=== PATIENT | female | born 1965 | race Caucasian/White ===

== ENCOUNTER → 2016-08-09 | Outpatient (CLI) | payer OTHER ==
--- NOTE | 2016-08-11 08:15 | MM ---
Reason for exam: screening (asymptomatic). Last mammogram was performed 1 year and 2 months ago. Physical Findings: A clinical breast exam by your physician is recommended on an annual basis and results should be correlated with mammographic findings. MG Screening Mammo w CAD Bilateral CC and MLO view(s) were taken. Prior study comparison: June 19, 2015, bilateral MG screening mammo w CAD. January 01, 2014, bilateral MG screening mammo w CAD. There are scattered fibroglandular densities. Finding: There is a 4 mm equal density (isodense) mass in the left breast on MLO, 6-7cm from the nipple. New finding since June 19, 2015 and January 01, 2014. ASSESSMENT: Incomplete: need additional imaging evaluation, BI-RAD 0 RECOMMENDATION: Special view mammogram of the left breast. If lesion persists on supplemental views, image directed ultrasound is recommended. [facility] will attempt to contact patient to return for supplemental views and ultrasound if indicated.
== END | disposition home or self-care (01) ==
LOC: RADMAMWWP 15:16
PROVIDERS: ATTEND Internal Medicine
DX: Z12.31 Encounter for screening mammogram for malignant neoplasm of breast (principal); R92.2 Inconclusive mammogram

== ENCOUNTER → 2016-08-12 | Outpatient (CLI) | payer OTHER ==
--- NOTE | 2016-08-12 13:57 | MM ---
Reason for exam: additional evaluation requested from abnormal screening. Last mammogram was performed less than 1 month ago. Physical Findings: Nurse did not find any significant physical abnormalities on exam. MG Work Up Mamm w CAD LT CC and MLO view(s) were taken of the left breast. Prior study comparison: August 09, 2016, bilateral MG screening mammo w CAD. June 19, 2015, bilateral MG screening mammo w CAD. There are scattered fibroglandular densities. No suspicious nodule. These results were verbally communicated with the patient and result sheet given to the patient on 08/12/16. ASSESSMENT: Probably benign, BI-RAD 3 RECOMMENDATION: Follow-up diagnostic mammogram of the left breast in 6 months.
== END | disposition home or self-care (01) ==
LOC: RADMAMWWP 12:57
PROVIDERS: ATTEND Internal Medicine
DX: R92.8 Other abnormal and inconclusive findings on diagnostic imaging of breast (principal)

== ENCOUNTER 2016-08-16 10:13 | Day surgery (SDC) | payer OTHER ==
[2016-08-12 11:35] VITALS: BMI 26.5
[~2016-08-16 10:13] MED LIST: DEXAMETHASONE SOD PHOSPHATE 10 MG/ML 1 ML VIAL IV ONE; HEPARIN SODIUM,PORCINE 5,000 UNIT/ML 1 ML VIAL SQ ONE; LACTATED RINGERS 1,000 ML IV ONE; LIDOCAINE 1% 20 ML VIAL (10MG/ML) FOR IV START INTRADERMA PRN; Pre Op ABX Message 1 EACH MISC MISCELLANE ONE
[2016-08-16 11:10] VITALS: RESP 16
[2016-08-16] MEDS ORDERED: LIDOCAINE 1% 20 ML VIAL (10MG/ML) FOR IV START INTRADERMA ONE (11:13)
--- NOTE | 2016-08-16 11:39 | P.GSHP ---
History of Present Illness H&P Date: 08/16/16 Chief Complaint: Right back lipoma This a 51-year-old female who presents today for excision of right back lipoma. Patient has a 5 cm lipoma located over her right upper back. Past Medical History Past Medical History: Asthma, GERD/Reflux, Osteoarthritis (OA) Additional Past Medical History / Comment(s): degenerative disk disease, scoliosis, sciatica fibromyalgia. Restless leg, migraine headaches, ADD, Lipoma R shoulder. History of Any Multi-Drug Resistant Organisms: MRSA Date of last positivie culture/infection: 03/2010 MDRO Source:: left shoulder/tattoo site Past Surgical History: Section, Orthopedic Surgery, Tubal Ligation Additional Past Surgical History / Comment(s): Both knees arthroscopy, rt hip arthroscopy, Lt hand extensor x2, nasal surgery, Past Anesthesia/Blood Transfusion Reactions: Family History of Problems w/ Anesthesia, Postoperative Nausea & Vomiting (PONV) Additional Past Anesthesia/Blood Transfusion Reaction / Comment(s): mom didn't wake from anesthesia well Past Psychological History: ADD/ADHD, Anxiety, Bipolar Smoking Status: Current every day smoker Past Alcohol Use History: None Reported Additional Past Alcohol Use History / Comment(s): Smokes aprrox. 1 PPD since young woman. States is trying to quit. Past Drug Use History: None Reported - Past Family History Brother(s) Family Medical History: Cancer, CVA/TIA, Myocardial Infarction ([place]) Additional Family Medical History / Comment(s): Another brother had throat cancer, another brother had colon cancer Father Family Medical History: Cancer Additional Family Medical History / Comment(s): stomach cancer Medications and Allergies Home Medications Medication Instructions Recorded Confirmed Type Ibuprofen [Motrin] 800 mg PO Q8HR PRN 10/01/14 08/16/16 History rOPINIRole HCL [Requip] 1 mg PO HS 10/01/14 08/16/16 History Albuterol Inhaler [Ventolin 1 puff INHALATION RT-Q4H PRN 01/07/15 08/16/16 History Inhaler] Budesonide-Formot 160-4.5 Mcg 2 puff INHALATION RT-BID 01/07/15 08/16/16 History [Symbicort 160-4.5 Mcg Inhaler] Loratadine [Claritin] 10 mg PO DAILY 01/07/15 08/16/16 History Montelukast [Singulair] 10 mg PO DAILY 01/07/15 08/16/16 History Ranitidine HCl 150 mg PO BID 01/07/15 08/16/16 History diphenhydrAMINE [Benadryl] 25 mg PO Q8H PRN 02/27/15 08/16/16 History ALPRAZolam [Xanax] 1 mg PO BID PRN 07/26/16 08/16/16 History Butalb/APAP/Caff 50-325-40Mg 1 tab PO Q12H PRN 07/26/16 08/16/16 History [Fioricet 50-325-40] Cyclobenzaprine [Flexeril] 10 mg PO Q8H 07/26/16 08/16/16 History Gabapentin [Neurontin] 100 mg PO TID PRN 07/26/16 08/16/16 History HYDROcodone/APAP 7.5-325MG [[place] 1 tab PO Q8H PRN 07/26/16 08/16/16 History 7.5-325] Allergies Allergy/AdvReac Type Severity Reaction Status Date / Time aspirin Allergy Dyspnea Verified 08/16/16 11:13 citalopram hydrobromide Allergy Rash/Hives Verified 08/16/16 11:13 [From Celexa] Penicillins Allergy Dyspnea Verified 08/16/16 11:13 propoxyphene napsylate Allergy Nausea & Verified 08/16/16 11:13 [From Darvocet-N] Vomiting Sulfa (Sulfonamide Allergy Dyspnea & Verified 08/16/16 11:13 Antibiotics) Severe Nausea & Vomiting Surgical - Exam Vital Signs Temp Pulse Resp BP Pulse Ox 97.1 F L 87 16 117/78 98 08/16/16 11:08 08/16/16 11:08 08/16/16 11:08 08/16/16 11:08 08/16/16 11:08 - General well developed, no distress - Eyes PERRL - ENT normal pinna - Neck no masses - Respiratory normal expansion - Cardiovascular Rhythm: regular - Abdomen Abdomen: soft - Integumentary 5 cm lipoma over right upper back. Assessment and Plan Plan: Right upper back lipoma. We'll perform excision.
[2016-08-16] MEDS ORDERED: BUPIVACAIN-EPI 0.25%-1:200,000 30 ML VIAL SQ ONE ×3 (11:48)
[2016-08-16] MEDS ORDERED: fentaNYL (PF) 50 MCG/ML 2 ML AMP ONE (11:55)
[2016-08-16] MEDS ORDERED: MIDAZOLAM 2 MG/2 ML VIAL ONE (11:55)
[2016-08-16] MEDS ORDERED: PROPOFOL 10 MG/ML 20 ML VIAL IV ONE (11:55)
[2016-08-16] MEDS ORDERED: SODIUM CHLORIDE 0.9% 50 ML with ceFAZolin 2,000 MG IV ONE ×2 (12:16)
--- NOTE | 2016-08-16 12:34 | P.OP ---
Date of Procedure: 08/16/16 Preoperative Diagnosis: Right back lipoma Postoperative Diagnosis: Right back lipoma Procedure(s) Performed: Excision of right back lipoma Anesthesia: MAC Surgeon: Matthieu Meyers Pathology: other (Right back lipoma) Condition: stable Disposition: PACU Description of Procedure: The patient's placed on the operative table in the lateral position. She received IV sedation. Patient's lipoma had been previously marked in the preoperative hold area. The skin was incised over the area lipoma. The lipoma was deep to the infraspinatus. The muscle fibers the infraspinatus were spread and the lipoma was visualized. The lipoma was then grasped with a pair of Allis clamps and then dissected with a left cautery. The lipoma measured prostate 10 x 10 cm. The Bovie was used for hemostasis. The skin was then closed with interrupted 3-0 Monocryl suture. Dermabond was applied. Patient was sent to recovery room stable condition.
[2016-08-16] MEDS: HYDROmorphone 1 MG/ML 1 ML SYRINGE IVP PRN ×2 (12:35→12:43)
[2016-08-16 12:40] VITALS: TEMP 97.4
[2016-08-16 13:30] VITALS: BP 113/75; PULSE 78
== END 2016-08-16 14:00 | disposition home or self-care (01) ==
LOC: OR 10:13
PROVIDERS: ATTEND Surgery
DX: K21.9 Gastro-esophageal reflux disease without esophagitis (principal); M19.90 Unspecified osteoarthritis, unspecified site; G25.81 Restless legs syndrome; M79.7 Fibromyalgia; F17.200 Nicotine dependence, unspecified, uncomplicated; J44.9 Chronic obstructive pulmonary disease, unspecified; J45.909 Unspecified asthma, uncomplicated; F41.9 Anxiety disorder, unspecified; Z79.51 Long term (current) use of inhaled steroids; Z79.899 Other long term (current) drug therapy; D17.1 Benign lipomatous neoplasm of skin and subcutaneous tissue of trunk; Z88.6 Allergy status to analgesic agent; Z88.5 Allergy status to narcotic agent; Z88.0 Allergy status to penicillin; Z88.2 Allergy status to sulfonamides
CPT/HCPCS: 81025; 88304; 21933; J2250; J1644; J1100; J3010; J1170; J0690; J2704; 99152; 99153

== ENCOUNTER → 2017-05-04 | Outpatient (CLI) | payer OTHER ==
--- NOTE | 2017-05-04 14:30 | MM ---
Reason for exam: follow-up at short interval from prior study. Last mammogram was performed 9 months ago. History: Family history of breast cancer in sister. MG Diagnostic Mammo LT w CAD CC, MLO, ML, and XCCL view(s) were taken of the left breast. Prior study comparison: August 12, 2016, left breast MG work up mamm w CAD LT. August 09, 2016, bilateral MG screening mammo w CAD. The breast tissue is heterogeneously dense. This may lower the sensitivity of mammography. The previously seen asymmetry is mammographically unchanged. These results were verbally communicated with the patient and result sheet given to the patient on 05/04/17. ASSESSMENT: Probably benign, BI-RAD 3 RECOMMENDATION: Follow-up diagnostic mammogram of both breasts in 3 months. Back on schedule for August 2017.
== END | disposition home or self-care (01) ==
LOC: RADMAMWWP 13:43
PROVIDERS: ATTEND Internal Medicine
DX: R92.8 Other abnormal and inconclusive findings on diagnostic imaging of breast (principal)

== ENCOUNTER → 2017-08-23 | Outpatient (CLI) | payer OTHER ==
--- NOTE | 2017-08-23 15:09 | US ---
EXAMINATION TYPE: US kidneys/renal and bladder DATE OF EXAM: 08/23/2017 COMPARISON: NONE CLINICAL HISTORY: R10.9 FLANK PAIN. hematuria EXAM MEASUREMENTS: Right Kidney: 10.2 x 4.0 x 5.9 cm Left Kidney: 10.7 x 5.2 x 5.8 cm exam somewhat limited due to bowel gas Right Kidney: No hydronephrosis or masses seen Left Kidney: No hydronephrosis or masses seen Bladder: wnl Bilateral Jets seen: Yes There is no evidence for hydronephrosis at this point in time. No nephrolithiasis is seen. No kandy s are identified. The urinary bladder is anechoic. Bilateral ureteral jets are seen. IMPRESSION: No significant abnormality seen
== END | disposition home or self-care (01) ==
LOC: RADUSWWP 14:20
PROVIDERS: ATTEND Internal Medicine
DX: R10.9 Unspecified abdominal pain (principal)
CPT/HCPCS: 76770

== ENCOUNTER → 2017-08-24 | Outpatient (CLI) | payer OTHER ==
--- NOTE | 2017-08-24 14:14 | MM ---
Reason for exam: additional evaluation requested from prior study. Last mammogram was performed 4 months ago. History: Family history of breast cancer in sister at age 45. Physical Findings: Nurse did not find any significant physical abnormalities on exam. MG Diagnostic Mammo w CAD SIENA Bilateral CC and MLO view(s) were taken. Prior study comparison: May 04, 2017, left breast MG diagnostic mammo LT w CAD. August 12, 2016, left breast MG work up mamm w CAD LT. There are scattered fibroglandular densities. There is chronic nodularity in the left breast. No significant new findings when compared with previous films. These results were verbally communicated with the patient and result sheet given to the patient on 08/24/17. ASSESSMENT: Benign, BI-RAD 2 RECOMMENDATION: Routine screening mammogram of both breasts in 1 year.
== END | disposition home or self-care (01) ==
LOC: RADMAMWWP 13:03
PROVIDERS: ATTEND Internal Medicine
DX: R92.8 Other abnormal and inconclusive findings on diagnostic imaging of breast (principal)
CPT/HCPCS: 77066

== ENCOUNTER 2018-10-24 11:33 | Emergency (ER) | payer OTHER ==
[2018-10-24 11:43] VITALS: RESP 18; TEMP 98.3
[2018-10-24 12:44] LABS: Basophils % (A) 0 %; Eosinophils # (A) 0.3 k/uL (0-0.7); Eosinophils % (A) 4 %; HCT 38.7 % (34.0-46.0); HGB 12.8 gm/dL (11.4-16.0); Lymphocytes # (A) 1.6 k/uL (1.0-4.8); Lymphocytes % (A) 22 %; MCH 29.8 pg (25.0-35.0); MCV 90.6 fL (80.0-100.0); Monocytes # (A) 0.3 k/uL (0-1.0); Monocytes % (A) 4 %; Neutrophils # (A) 5.1 k/uL (1.3-7.7); Neutrophils % (A) 69 %; Platelet Count 362 k/uL (150-450); RBC 4.28 m/uL (3.80-5.40); RDW 14.9 % (11.5-15.5); WBC 7.4 k/uL (3.8-10.6)
[2018-10-24 12:52] LABS: ALT 26 U/L (9-52); AST 16 U/L (14-36); Albumin 4.2 g/dL (3.5-5.0); Alkaline Phosphatase 70 U/L (38-126); Anion Gap 8 mmol/L; Blood Urea Nitrogen 13 mg/dL (7-17); Calcium 9.6 mg/dL (8.4-10.2); Carbon Dioxide 21 mmol/L (22-30); Chloride 111 mmol/L (98-107); Glucose 107 mg/dL (74-99); Potassium 4.2 mmol/L (3.5-5.1); Sodium 140 mmol/L (137-145); Total Bilirubin 0.3 mg/dL (0.2-1.3); Total Protein 6.9 g/dL (6.3-8.2)
[2018-10-24 12:55] LABS: INR 0.9 (<1.2); Partial Thromboplastin Time 22.7 sec (22.0-30.0); Prothrombin Time 9.9 sec (9.0-12.0)
[2018-10-24 12:59] LABS: Appearance,Urine Clear (Clear); Bilirubin,Urine Negative (Negative); Blood,Urine Moderate (Negative); Color,Urine Yellow; Glucose,Urine (UA) Negative (Negative); Ketones,Urine Negative (Negative); Leukocyte Esterase,Urine Negative (Negative); Mucus,Urine Rare /hpf; Nitrite,Urine Negative (Negative); PH, Urine 7.5 (5.0-8.0); Protein,Urine Negative (Negative); RBC,Urine 97 /hpf (0-5); Specific Gravity,Urine 1.018 (1.001-1.035); Squamous Epithelial Cell,Urine 1 /hpf (0-4); Urobilinogen,Urine <2.0 mg/dL (<2.0); WBC,Urine <1 /hpf (0-5)
--- NOTE | 2018-10-24 13:14 | ED ---
General Adult HPI - General Chief complaint: Vaginal Bleeding Stated complaint: Female , bleeding Time Seen by Provider: 10/24/18 11:53 Source: patient, RN notes reviewed, old records reviewed Mode of arrival: ambulatory Limitations: no limitations - History of Present Illness Initial comments: This is a 53-year-old female who presents today with 3 weeks of vaginal bleeding. She reports that heavy passing significant amount of clots. Patient states that she's had no other significant symptoms like lightheaded or dizziness. Patient states that she is supposed to follow up with [facility] but has not been able to at this time. She reports she's just increasingly concerned about she come to the ER today. Patient denies any other symptoms. Patient reports that she's not had a menstrual cycle in the past year. - Related Data Home Medications Medication Instructions Recorded Confirmed Ibuprofen [Motrin] 800 mg PO Q8HR PRN 10/01/14 10/24/18 rOPINIRole HCL [Requip] 1 mg PO HS 10/01/14 10/24/18 Albuterol Inhaler [Ventolin 1 puff INHALATION RT-Q4H PRN 01/07/15 10/24/18 Inhaler] Budesonide-Formot 160-4.5 Mcg 2 puff INHALATION RT-BID 01/07/15 10/24/18 [Symbicort 160-4.5 Mcg Inhaler] Loratadine [Claritin] 10 mg PO DAILY 01/07/15 10/24/18 Montelukast [Singulair] 10 mg PO DAILY 01/07/15 10/24/18 Ranitidine HCl 150 mg PO BID 01/07/15 10/24/18 diphenhydrAMINE [Benadryl] 25 mg PO Q8H PRN 02/27/15 10/24/18 ALPRAZolam [Xanax] 1 mg PO BID PRN 07/26/16 10/24/18 Butalb/APAP/Caff 50-325-40Mg 1 tab PO Q12H PRN 07/26/16 10/24/18 [Fioricet 50-325-40] Cyclobenzaprine [Flexeril] 10 mg PO BID PRN 07/26/16 10/24/18 Ergocalciferol (Vitamin D2) 50,000 unit PO QMONTH 10/24/18 10/24/18 [Vitamin D2] HYDROcodone/APAP 10-325MG [[place] 1 tab PO TID PRN 10/24/18 10/24/18 10-325] Levofloxacin [Levaquin] 500 mg PO BID 10/24/18 10/24/18 Levothyroxine Sodium [Synthroid] 25 mcg PO DAILY 10/24/18 10/24/18 Rosuvastatin Calcium [Crestor] 5 mg PO DAILY 10/24/18 10/24/18 lamoTRIgine [LaMICtal Xr] 50 mg PO TID 10/24/18 10/24/18 Allergies Allergy/AdvReac Type Severity Reaction Status Date / Time aspirin Allergy Dyspnea Verified 10/24/18 12:07 citalopram hydrobromide Allergy Rash/Hives Verified 10/24/18 12:07 [From Celexa] Penicillins Allergy Dyspnea Verified 10/24/18 12:07 propoxyphene napsylate Allergy Nausea & Verified 10/24/18 12:07 [From Darvocet-N] Vomiting Sulfa (Sulfonamide Allergy Dyspnea & Verified 10/24/18 12:07 Antibiotics) Severe Nausea & Vomiting Review of Systems ROS Statement: Those systems with pertinent positive or pertinent negative responses have been documented in the HPI. ROS Other: All systems not noted in ROS Statement are negative. Past Medical History Past Medical History: Fibromyalgia Additional Past Medical History / Comment(s): degenerative disk disease, scoliosis, sciatica,. Restless leg, migraine headaches History of Any Multi-Drug Resistant Organisms: MRSA Date of last positivie culture/infection: 03/2010 MDRO Source:: left shoulder/tattoo site Past Surgical History: Section, Orthopedic Surgery, Tubal Ligation Additional Past Surgical History / Comment(s): Both knees arthroscopy, rt hip arthroscopy, Lt hand extensor x2, nasal surgery Past Anesthesia/Blood Transfusion Reactions: Family History of Problems w/ Anesthesia, Postoperative Nausea & Vomiting (PONV) Additional Past Anesthesia/Blood Transfusion Reaction / Comment(s): mom didn't wake from anesthesia well Past Psychological History: ADD/ADHD, Anxiety, Bipolar Smoking Status: Current every day smoker Past Alcohol Use History: None Reported Past Drug Use History: None Reported - Past Family History Brother(s) Family Medical History: Cancer, CVA/TIA, Myocardial Infarction ([place]) Additional Family Medical History / Comment(s): Another brother had throat cancer, another brother had colon cancer Father Family Medical History: Cancer Additional Family Medical History / Comment(s): stomach cancer General Exam - General Exam Comments Initial Comments: 53-year-old female. Alert and oriented. No distress. Limitations: no limitations General appearance: alert, in no apparent distress Head exam: Present: atraumatic, normocephalic, normal inspection Eye exam: Present: normal appearance, PERRL, EOMI. Absent: scleral icterus, conjunctival injection, periorbital swelling ENT exam: Present: normal exam, mucous membranes moist Neck exam: Present: normal inspection. Absent: tenderness, meningismus, lymphadenopathy Respiratory exam: Present: normal lung sounds bilaterally. Absent: respiratory distress, wheezes, rales, rhonchi, stridor Cardiovascular Exam: Present: regular rate, normal rhythm, normal heart sounds. Absent: systolic murmur, diastolic murmur, rubs, gallop, clicks GI/Abdominal exam: Present: soft, normal bowel sounds. Absent: distended, tenderness, guarding, rebound, rigid External exam: Present: normal external exam Speculum exam: Present: vaginal bleeding. Absent: normal speculum exam, erythema, vaginal discharge, cervical discharge, foreign body, tissue, lacerat ion By manual exam: Present: normal by manual exam. Absent: cervical motion tenderness, adnexal tenderness, adnexal mass, uterine enlargement, uterine tenderness Extremities exam: Present: normal inspection, full ROM, normal capillary refill. Absent: tenderness, pedal edema, joint swelling, calf tenderness Back exam: Present: normal inspection Neurological exam: Present: alert, oriented X3, CN II-XII intact Psychiatric exam: Present: normal affect, normal mood Skin exam: Present: warm, dry, intact, normal color. Absent: rash Course Vital Signs 10/24/18 11:40 Temperature 98.3 F Pulse Rate 108 H Respiratory 18 Rate Blood Pressure 120/77 O2 Sat by Pulse 98 Oximetry Medical Decision Making - Medical Decision Making Patient's 53-year-old female who presents emergency Department with abnormal uterine bleeding. She's been postmenopausal for one year. Heavy vaginal bleeding for the past 3 weeks. She's been seen by her PCP. She isn't taken more concerned today and wanted to come in for evaluation. Patient's lab work including hemoglobin was normal. Pelvic exam did show some bleeding but no significant masses on internal examination. Transvaginal ultrasound was completed. There is a mildly thickened endometrium and some fibroid areas. Patient advised that this can be abnormal and postman possible female she needs a prompt follow-up with [facility]. Patient agrees to treatment plan will comply. Return parameters were discussed. - Lab Data Result diagrams: 10/24/18 12:15 10/24/18 12:15 Lab Results 10/24/18 10/24/18 10/24/18 Range/Units 12:15 12:15 12:15 WBC 7.4 (3.8-10.6) k/uL RBC 4.28 (3.80-5.40) m/uL Hgb 12.8 (11.4-16.0) gm/dL Hct 38.7 (34.0-46.0) % MCV 90.6 (80.0-100.0) fL MCH 29.8 (25.0-35.0) pg MCHC 33.0 (31.0-37.0) g/dL RDW 14.9 (11.5-15.5) % Plt Count 362 (150-450) k/uL Neutrophils % 69 % Lymphocytes % 22 % Monocytes % 4 % Eosinophils % 4 % Basophils % 0 % Neutrophils # 5.1 (1.3-7.7) k/uL Lymphocytes # 1.6 (1.0-4.8) k/uL Monocytes # 0.3 (0-1.0) k/uL Eosinophils # 0.3 (0-0.7) k/uL Basophils # 0.0 (0-0.2) k/uL PT 9.9 (9.0-12.0) sec INR 0.9 (<1.2) APTT 22.7 (22.0-30.0) sec Sodium 140 (137-145) mmol/L Potassium 4.2 (3.5-5.1) mmol/L Chloride 111 H (98-107) mmol/L Carbon Dioxide 21 L (22-30) mmol/L Anion Gap 8 mmol/L BUN 13 (7-17) mg/dL Creatinine 0.70 (0.52-1.04) mg/dL Est GFR (CKD-EPI)AfAm >90 (>60 ml/min/1.73 sqM) Est GFR (CKD-EPI)NonAf >90 (>60 ml/min/1.73 sqM) Glucose 107 H (74-99) mg/dL Calcium 9.6 (8.4-10.2) mg/dL Total Bilirubin 0.3 (0.2-1.3) mg/dL AST 16 (14-36) U/L ALT 26 (9-52) U/L Alkaline Phosphatase 70 (38-126) U/L Total Protein 6.9 (6.3-8.2) g/dL Albumin 4.2 (3.5-5.0) g/dL Urine Color Urine Appearance (Clear) Urine pH (5.0-8.0) Ur Specific [place] (1.001-1.035) Urine Protein (Negative) Urine Glucose (UA) (Negative) Urine Ketones (Negative) Urine Blood (Negative) Urine Nitrite (Negative) Urine Bilirubin (Negative) Urine Urobilinogen (<2.0) mg/dL Ur Leukocyte Esterase (Negative) Urine RBC (0-5) /hpf Urine WBC (0-5) /hpf Ur Squamous Epith Cells (0-4) /hpf Urine Mucus (None) /hpf 10/24/18 Range/Units 12:15 WBC (3.8-10.6) k/uL RBC (3.80-5.40) m/uL Hgb (11.4-16.0) gm/dL Hct (34.0-46.0) % MCV (80.0-100.0) fL MCH (25.0-35.0) pg MCHC (31.0-37.0) g/dL RDW (11.5-15.5) % Plt Count (150-450) k/uL Neutrophils % % Lymphocytes % % Monocytes % % Eosinophils % % Basophils % % Neutrophils # (1.3-7.7) k/uL Lymphocytes # (1.0-4.8) k/uL Monocytes # (0-1.0) k/uL Eosinophils # (0-0.7) k/uL Basophils # (0-0.2) k/uL PT (9.0-12.0) sec INR (<1.2) APTT (22.0-30.0) sec Sodium (137-145) mmol/L Potassium (3.5-5.1) mmol/L Chloride (98-107) mmol/L Carbon Dioxide (22-30) mmol/L Anion Gap mmol/L BUN (7-17) mg/dL Creatinine (0.52-1.04) mg/dL Est GFR (CKD-EPI)AfAm (>60 ml/min/1.73 sqM) Est GFR (CKD-EPI)NonAf (>60 ml/min/1.73 sqM) Glucose (74-99) mg/dL Calcium (8.4-10.2) mg/dL Total Bilirubin (0.2-1.3) mg/dL AST (14-36) U/L ALT (9-52) U/L Alkaline Phosphatase (38-126) U/L Total Protein (6.3-8.2) g/dL Albumin (3.5-5.0) g/dL Urine Color Yellow Urine Appearance Clear (Clear) Urine pH 7.5 (5.0-8.0) Ur Specific [place] 1.018 (1.001-1.035) Urine Protein Negative (Negative) Urine Glucose (UA) Negative (Negative) Urine Ketones Negative (Negative) Urine Blood Moderate H (Negative) Urine Nitrite Negative (Negative) Urine Bilirubin Negative (Negative) Urine Urobilinogen <2.0 (<2.0) mg/dL Ur Leukocyte Esterase Negative (Negative) Urine RBC 97 H (0-5) /hpf Urine WBC <1 (0-5) /hpf Ur Squamous Epith Cells 1 (0-4) /hpf Urine Mucus Rare H (None) /hpf - Radiology Data Radiology results: report reviewed Heterogeneous myometrium with pedunculated appearing fibroid measuring 1.5 by and 2 cystic benign-appearing myometrial lesions. Endometrium is slightly thickened for postmenopausal female. Could relate to endometrial hyperplasia endometrial polyp or mass. Further evaluation with sinus drip should be considered. In the setting of postmenopausal bleeding direct visualization c ould also be performed. Patient has a simple's appearing 2.9 cm left ovarian cyst. Nonvisualization of the right ovary is is obscured by bowel gas. Disposition Clinical Impression: Uterine fibroid, Abnormal uterine bleeding Disposition: HOME SELF-CARE Condition: Good Is patient prescribed a controlled substance at d/c from ED?: No Referrals: Gus Neves MD [Primary Care Provider] - 1-2 days Time of Disposition: 14:12
--- NOTE | 2018-10-24 13:42 | US ---
EXAMINATION TYPE: US transvaginal DATE OF EXAM: 10/24/2018 COMPARISON: NONE CLINICAL HISTORY: Pain. Menopause x 1 year, Bleeding x 3 weeks, tubal ligation in 1994 TECHNIQUE: Transvaginal (TV). Date of LMP: 2018, EXAM MEASUREMENTS: Uterus: 7.5 x 4.4 x 3.7 cm Endometrial Stripe: 0.7 cm Left Ovary: 3.2 x 2.4 x 2.7 cm 1. Uterus: Anteverted Appears heterogenous. Two cystic appearing lesions seen adjacent to endomet rium, 1- 0.2 x 0.2 cm 2- 0.4 x 0.5 cm. Left posterior hypoechoic lesion seen in myometrium - 1.5 x 1 .5 x 1.2 cm 2. Endometrium: Slightly thickened 3. Right Ovary: Obscured by overlying bowel gas 4. Left Ovary: Cystic appearing lesion seen- 2.9 x 2.4 x 2.3 cm Spectral, color and waveform doppler imaging shows good arterial and venous flow within the left ov lina; there is no evidence for ovarian torsion. 5. Bilateral Adnexa: wnl 6. Posterior cul-de-sac: no free fluid IMPRESSION: 1. Heterogenous myometrium with pedunculated appearing probable fibroid measuring 1.5 cm and 2 cystic benign-appearing myometrial lesions. 2. Endometrium is slightly thickened for a postmenopausal female. This could relate to endometrial hy perplasia, endometrial polyp or endometrial mass. Further evaluation with sonohysterogram could be co nsidered. In the setting of postmenopausal bleeding direct visualization could also BE performed. 3. Simple appearing 2.9 cm left ovarian cyst. 4. Nonvisualization of the right ovary as it is obscured by overlying bowel gas.
[2018-10-24 14:27] VITALS: BP 138/98; PULSE 86
[2018-10-25 13:52] LABS: C. trachomatis,PCR Negative (Neg,Equiv); Chlamydia trachomatis Source Vagina; N. gonorrhoeae,PCR Negative (Neg,Equiv); Neisseria Source Vagina
== END 2018-10-24 14:25 | disposition home or self-care (01) ==
LOC: EC 11:33
DX: D25.9 Leiomyoma of uterus, unspecified (principal); M79.7 Fibromyalgia; G25.81 Restless legs syndrome; F31.9 Bipolar disorder, unspecified; F90.9 Attention-deficit hyperactivity disorder, unspecified type; F41.9 Anxiety disorder, unspecified; F17.200 Nicotine dependence, unspecified, uncomplicated; Z86.14 Personal history of Methicillin resistant Staphylococcus aureus infection; Z98.51 Tubal ligation status; Z79.51 Long term (current) use of inhaled steroids; Z79.890 Hormone replacement therapy; Z79.899 Other long term (current) drug therapy; Z88.6 Allergy status to analgesic agent; Z88.0 Allergy status to penicillin; Z88.2 Allergy status to sulfonamides; Z88.8 Allergy status to other drugs, medicaments and biological substances; Z88.5 Allergy status to narcotic agent
CPT/HCPCS: 36415; 76830; 80053; 81001; 85025; 85610; 85730; 87070; 87205; 87491; 87591; 87808; 93976; 99284

== ENCOUNTER → 2018-11-13 | Outpatient (CLI) | payer OTHER ==
--- NOTE | 2018-11-15 14:39 | MM ---
Reason for exam: screening (asymptomatic). Last mammogram was performed 1 year and 3 months ago. History: Family history of breast cancer in sister at age 45. Physical Findings: A clinical breast exam by your physician is recommended on an annual basis and results should be correlated with mammographic findings. MG Screening Mammo w CAD Bilateral CC and MLO view(s) were taken. Prior study comparison: August 24, 2017, bilateral MG diagnostic mammo w CAD SIENA. May 04, 2017, left breast MG diagnostic mammo LT w CAD. There are scattered fibroglandular densities. No significant changes when compared with prior studies. ASSESSMENT: Benign, BI-RAD 2 RECOMMENDATION: Routine screening mammogram of both breasts in 1 year.
== END | disposition home or self-care (01) ==
LOC: RADMAMWWP 10:52
PROVIDERS: ATTEND Internal Medicine
DX: Z12.31 Encounter for screening mammogram for malignant neoplasm of breast (principal)
CPT/HCPCS: 77067

== ENCOUNTER → 2018-11-30 | Outpatient (CLI) | payer OTHER ==
[2018-11-30 12:34] LABS: Basophils % (A) 0 %; Eosinophils # (A) 0.2 k/uL (0-0.7); Eosinophils % (A) 3 %; HCT 44.4 % (34.0-46.0); HGB 14.4 gm/dL (11.4-16.0); Lymphocytes # (A) 2.4 k/uL (1.0-4.8); Lymphocytes % (A) 32 %; MCH 29.1 pg (25.0-35.0); MCHC 32.3 g/dL (31.0-37.0); Mean Platelet Volume 8.3; Monocytes # (A) 0.4 k/uL (0-1.0); Monocytes % (A) 5 %; Neutrophils # (A) 4.4 k/uL (1.3-7.7); Neutrophils % (A) 58 %; Platelet Count 347 k/uL (150-450); RBC 4.94 m/uL (3.80-5.40); RDW 13.9 % (11.5-15.5); WBC 7.5 k/uL (3.8-10.6)
== END | disposition home or self-care (01) ==
LOC: LABPAT 11:32
PROVIDERS: ATTEND Obstetrics & Gynecology
DX: Z01.818 Encounter for other preprocedural examination (principal); Z01.812 Encounter for preprocedural laboratory examination
CPT/HCPCS: 36415; 85025; 93005

== ENCOUNTER 2018-12-12 06:17 | Day surgery (SDC) | payer OTHER ==
[2018-12-05 11:26] VITALS: BMI 28.3
[~2018-12-12 06:17] MED LIST changes: -HEPARIN SODIUM,PORCINE 5,000 UNIT/ML 1 ML VIAL SQ ONE; -LACTATED RINGERS 1,000 ML IV ONE; +LACTATED RINGERS 1,000 ML IV SCH; -LIDOCAINE 1% 20 ML VIAL (10MG/ML) FOR IV START INTRADERMA PRN; +MIDAZOLAM 2 MG/2 ML VIAL IV PRN; +ONDANSETRON 4 MG/2 ML VIAL IVP ONE; +SCOPOLAMINE 1.5MG/72HR PATCH TRANSDERM ONE
[2018-12-12] MEDS ORDERED: LIDOCAINE 1% 20 ML VIAL (10MG/ML) FOR IV START IV ONE (06:55)
[2018-12-12] MEDS ORDERED: PROPOFOL 10 MG/ML 20 ML VIAL IV ONE (07:20)
[2018-12-12] MEDS ORDERED: LIDOCAINE 1% INJ 10MG/ML (20 ML MDV) ONE (07:20)
[2018-12-12] MEDS ORDERED: MIDAZOLAM 2 MG/2 ML VIAL ONE (07:20)
[2018-12-12] MEDS ORDERED: fentaNYL (PF) 50 MCG/ML 2 ML AMP ONE (07:20)
[2018-12-12 08:15] VITALS: TEMP 98.5
[2018-12-12] MEDS: HYDROmorphone 0.5 MG/0.5 ML SYRINGE IVP PRN ×2 (08:19→08:31)
[2018-12-12 08:42] VITALS: RESP 16
--- NOTE | 2018-12-12 08:44 | P.OP ---
Date of Procedure: 12/12/18 Preoperative Diagnosis: Postmenopausal bleeding Postoperative Diagnosis: Same Procedure(s) Performed: D&C with hysteroscopy and Pap smear Anesthesia: JOSÉ ANTONIO Surgeon: Tom Garcia Estimated Blood Loss (ml): 3 Pathology: other (Uterine curettings and Pap smear) Condition: stable Disposition: same day Operative Findings: Small anteverted uterus is noted otherwise no gross findings on pelvic exam Description of Procedure: Patient was taken to the operating suite where general anesthetic was found be adequate. She was prepped and draped in normal sterile fashion and placed in dorsal lithotomy position. Initially a weighted speculum was inserted into the vagina and the anterior lip of the cervix identified and grasped with an Allis clamp. Cervix was then dilated and camera was inserted no gross pathology a low possible small polyp was noted. Pap smear was then done. Camera was then removed and sharp curettings were obtained. This tissue was collected placed on Telfa and sent to pathology for evaluation once this was accomplished all instruments were removed. Sponge, lap, needle counts were all correct 2. Patient was then taken to the recovery room in stable and satisfactory condition. Plan - Discharge Summary Discharge Rx Participant: Yes New Discharge Prescriptions: No Action rOPINIRole HCL [Requip] 1 mg PO HS Ibuprofen [Motrin] 800 mg PO Q8HR PRN PRN Reason: Pain Ranitidine HCl 150 mg PO BID Montelukast [Singulair] 10 mg PO DAILY Loratadine [Claritin] 10 mg PO DAILY Budesonide-Formot 160-4.5 Mcg [Symbicort 160-4.5 Mcg Inhaler] 2 puff IN HALATION RT-BID Albuterol Inhaler [Ventolin Inhaler] 1 puff INHALATION RT-Q4H PRN PRN Reason: Shortness Of Breath Cyclobenzaprine [Flexeril] 10 mg PO BID PRN PRN Reason: Muscle Spasm Butalb/APAP/Caff 50-325-40Mg [Fioricet 50-325-40] 1 tab PO Q12H PRN PRN Reason: Headache HYDROcodone/APAP 10-325MG [[place] 10-325] 1 tab PO TID PRN PRN Reason: pain Ergocalciferol (Vitamin D2) [Vitamin D2] 50,000 unit PO WE Rosuvastatin Calcium [Crestor] 5 mg PO DAILY Levothyroxine Sodium [Synthroid] 25 mcg PO DAILY lamoTRIgine [LaMICtal Xr] 50 mg PO TID ALPRAZolam [Xanax] 0.5 mg PO BID PRN PRN Reason: Anxiety Multivitamins, Thera [Multivitamin (formulary)] 1 tab PO DAILY Discharge Medication List Ibuprofen [Motrin] 800 mg PO Q8HR PRN 10/01/14 [History] rOPINIRole HCL [Requip] 1 mg PO HS 10/01/14 [History] Albuterol Inhaler [Ventolin Inhaler] 1 puff INHALATION RT-Q4H PRN 01/07/15 [History] Budesonide-Formot 160-4.5 Mcg [Symbicort 160-4.5 Mcg Inhaler] 2 puff INHALATION RT-BID 01/07/15 [History] Loratadine [Claritin] 10 mg PO DAILY 01/07/15 [History] Montelukast [Singulair] 10 mg PO DAILY 01/07/15 [History] Ranitidine HCl 150 mg PO BID 01/07/15 [History] Butalb/APAP/Caff 50-325-40Mg [Fioricet 50-325-40] 1 tab PO Q12H PRN 07/26/16 [History] Cyclobenzaprine [Flexeril] 10 mg PO BID PRN 07/26/16 [History] Ergocalciferol (Vitamin D2) [Vitamin D2] 50,000 unit PO WE 10/24/18 [History] HYDROcodone/APAP 10-325MG [[place] 10-325] 1 tab PO TID PRN 10/24/18 [History] Levothyroxine Sodium [Synthroid] 25 mcg PO DAILY 10/24/18 [History] Rosuvastatin Calcium [Crestor] 5 mg PO DAILY 10/24/18 [History] lamoTRIgine [LaMICtal Xr] 50 mg PO TID 10/24/18 [History] ALPRAZolam [Xanax] 0.5 mg PO BID PRN 12/05/18 [History] Multivitamins, Thera [Multivitamin (formulary)] 1 tab PO DAILY 12/05/18 [History] Follow up Appointment(s)/Referral(s): Tom Garcia DO [Doctor of Osteopathic Medicine] - 2 Weeks Activity/Diet/Wound Care/Special Instructions: No heavy lifting, limit stairs and driving, and complete pelvic rest the next 2- 3 days. If any high temperatures, heavy bleeding, or severe pain call my office Discharge Disposition: HOME SELF-CARE
[2018-12-12 08:54] VITALS: BP 129/87; PULSE 92
== END 2018-12-12 09:18 | disposition home or self-care (01) ==
LOC: OR 06:17
PROVIDERS: ATTEND Obstetrics & Gynecology
DX: N84.0 Polyp of corpus uteri (principal); F41.9 Anxiety disorder, unspecified; F90.9 Attention-deficit hyperactivity disorder, unspecified type; G43.909 Migraine, unspecified, not intractable, without status migrainosus; M79.7 Fibromyalgia; M41.9 Scoliosis, unspecified; J44.9 Chronic obstructive pulmonary disease, unspecified; E78.5 Hyperlipidemia, unspecified; E07.9 Disorder of thyroid, unspecified; G89.4 Chronic pain syndrome; G25.81 Restless legs syndrome; F17.210 Nicotine dependence, cigarettes, uncomplicated; F17.290 Nicotine dependence, other tobacco product, uncomplicated; Z79.1 Long term (current) use of non-steroidal anti-inflammatories (NSAID); Z88.6 Allergy status to analgesic agent; Z88.0 Allergy status to penicillin; Z88.8 Allergy status to other drugs, medicaments and biological substances; Z79.899 Other long term (current) drug therapy; Z79.890 Hormone replacement therapy; Z79.82 Long term (current) use of aspirin; Z88.2 Allergy status to sulfonamides; Z79.891 Long term (current) use of opiate analgesic
CPT/HCPCS: 81025; 88305; 58558; J2250; J1100; J2405; J2001; J3010; J2704; J1170

== ENCOUNTER → 2019-03-19 | Outpatient (CLI) | payer OTHER ==
--- NOTE | 2019-03-19 12:32 | XR ---
EXAMINATION TYPE: XR finger RT DATE OF EXAM: 03/19/2019 COMPARISON: 04/23/2015 right hand HISTORY: Pain base of thumb TECHNIQUE: Three-view right thumb FINDINGS: There is loss of joint space at the first carpal metacarpal junction. Some mild subluxation may be present. Proximal interphalangeal joint space itself appears intact. Carpal metacarpal juncti on appears normal. IMPRESSION: 1. Degenerative changes first carpal metacarpal junction.
--- NOTE | 2019-03-19 12:33 | XR ---
EXAMINATION TYPE: XR wrist complete RT DATE OF EXAM: 03/19/2019 COMPARISON: None HISTORY: Pain TECHNIQUE: 4 view right wrist FINDINGS: No acute fractures or dislocations are evident. The soft tissues are normal. There is pain at the anatomic snuff box, nuclear medicine bone scan be recommended for additional zaynab luation. Follow-up exams can be performed 7-10 days from acute trauma for continued pain IMPRESSION: 1. No acute osseous abnormality right wrist
== END | disposition home or self-care (01) ==
LOC: RADXRMAIN 11:47
PROVIDERS: ATTEND Internal Medicine
DX: M25.531 Pain in right wrist (principal); M25.541 Pain in joints of right hand

== ENCOUNTER → 2020-03-06 | Outpatient (CLI) | payer OTHER ==
--- NOTE | 2020-03-06 09:49 | CT ---
EXAMINATION TYPE: CT sinus wo con DATE OF EXAM: 03/06/2020 COMPARISON: Sinus CT January 15, 2015 HISTORY: recurrent sinus infections CT DLP: 615.9 mGycm. Automated Exposure Control for Dose Reduction was Utilized. TECHNIQUE: CT scan of the sinuses is performed without contrast, axial images are obtained, coronal r eformatted images are also reviewed. FINDINGS: Moderate dependent and patchy fluid bilateral maxillary sinuses, right slightly larger than left. Small to moderate dependent fluid in the dominant size left sphenoid sinus. Patchy and dependent flui d nearly completely fills the smaller caliber right sphenoid sinus. Near complete opacification of bilateral ethmoid sinuses with some air-fluid levels noted. Suspect ac anvik on chronic disease. Patent bilateral frontal sinuses. Nasal septum remains deviated to left of midline. The ostiomeatal complex is occluded bilaterally on the coronal images. Visualized portion of mastoid air cells show no abnormal opacification. The globes are intact bilate rally. Septum pellucidum vergae incidentally redemonstrated. IMPRESSION: Fairly moderate to severe Acute on chronic paranasal pansinusitis as detailed above. Fin dings significantly more prominent from 2015 study.
== END | disposition home or self-care (01) ==
LOC: RADCTMAIN 09:19
PROVIDERS: ATTEND Internal Medicine
DX: J32.4 Chronic pansinusitis (principal); J32.9 Chronic sinusitis, unspecified
CPT/HCPCS: 70486

== ENCOUNTER → 2020-03-20 | Outpatient (CLI) | payer OTHER ==
--- NOTE | 2020-03-21 10:05 | MM ---
Reason for exam: screening (asymptomatic). Last mammogram was performed 1 year and 4 months ago. History: Family history of breast cancer in sister at age 45. Physical Findings: A clinical breast exam by your physician is recommended on an annual basis and results should be correlated with mammographic findings. MG Screening Mammo w CAD Bilateral CC and MLO view(s) were taken. Prior study comparison: November 13, 2018, bilateral MG screening mammo w CAD. August 24, 2017, bilateral MG diagnostic mammo w CAD SIENA. The breast tissue is heterogeneously dense. This may lower the sensitivity of mammography. There is no discrete abnormality. No significant changes when compared with prior studies. ASSESSMENT: Negative, BI-RAD 1 RECOMMENDATION: Routine screening mammogram of both breasts in 1 year.
== END | disposition home or self-care (01) ==
LOC: RADMAMWWP 13:04
PROVIDERS: ATTEND Internal Medicine
DX: Z12.31 Encounter for screening mammogram for malignant neoplasm of breast (principal)
CPT/HCPCS: 77067

== ENCOUNTER 2020-05-17 19:32 | Emergency (ER) | payer OTHER ==
[2020-05-17] MEDS ORDERED: SODIUM CHLORIDE 0.9% 1,000 ML IV STA (19:47)
[2020-05-17] MEDS ORDERED: MAG HYDROX/AL HYDROX/SIMETH 30 ML, HYOSCYAMINE ELIXIR 10 ML, LIDOCAINE VISCOUS 2% 10 ML PO STA ×3 (19:48)
--- NOTE | 2020-05-17 20:27 | XR ---
EXAMINATION TYPE: XR KUB DATE OF EXAM: 05/17/2020 COMPARISON: NONE HISTORY: Pain TECHNIQUE: 2 views FINDINGS: 2 views upright were obtained and show no sign of intestinal obstruction or pneumoperitoneu m. Fecal pattern is normal. Lung bases are clear. There are no pathologic calcifications over the kid neys. There is no sign of a mass. IMPRESSION: Nonacute abdomen.
--- NOTE | 2020-05-17 20:27 | ED ---
General Adult HPI - General Source: patient, RN notes reviewed, old records reviewed Mode of arrival: ambulatory Limitations: no limitations <Nestor Betancur - Last Filed: 05/17/20 21:35> <Shweta Giles - Last Filed: 05/18/20 13:21> - General Chief complaint: Abdominal Pain Stated complaint: Chest pain Time Seen by Provider: 05/17/20 19:41 - History of Present Illness Initial comments: 54-year-old female patient presents to ED for evaluation of epigastric abdominal pain. Patient reports that for the last week after she has eaten a meal she has had epigastric burning. Denies any chest pain shortness of breath. Denies any other complaints. Systemic: Pt denies fatigue, fever/chills, rash. Pt denies weakness, night sweats, weight loss. Neuro: Pt denies headache, visual disturbances, syncope or pre-syncope. HEENT: Pt denies ocular discharge or irritation, otalgia, rhinorrhea, pharyngitis or notable lymphadenopathy. Cardiopulmonary: Pt denies chest pain, SOB, heart palpitations, dyspnea on exertion. Abdominal/GI: Pt denies n/v/d. : Pt denies dysuria, burning w/ urination, frequency/urgency. Denies new onset urinary or bowel incontinence. MSK: Pt denies myalgia, loss of strength or function in extremities. Neuro: Pt denies new onset weakness, paresthesias. (Nestor Betancur) - Related Data Home Medications Medication Instructions Recorded Confirmed Ibuprofen [Motrin] 800 mg PO Q8HR PRN 10/01/14 12/05/18 rOPINIRole HCL [Requip] 1 mg PO HS 10/01/14 12/05/18 Albuterol Inhaler (Mhu) [Ventolin 1 puff INHALATION RT-Q4H PRN 01/07/15 12/05/18 Inhaler] Budesonide-Formot 160-4.5 Mcg 2 puff INHALATION RT-BID 01/07/15 12/05/18 [Symbicort 160-4.5 Mcg Inhaler] Loratadine [Claritin] 10 mg PO DAILY 01/07/15 12/05/18 Montelukast [Singulair] 10 mg PO DAILY 01/07/15 12/05/18 Ranitidine HCl 150 mg PO BID 01/07/15 12/05/18 Butalb/APAP/Caff 50-325-40Mg 1 tab PO Q12H PRN 07/26/16 12/05/18 [Fioricet 50-325-40] Cyclobenzaprine [Flexeril] 10 mg PO BID PRN 07/26/16 12/05/18 Ergocalciferol (Vitamin D2) 50,000 unit PO WE 10/24/18 12/05/18 [Vitamin D2] HYDROcodone/APAP 10-325MG [Felda 1 tab PO TID PRN 10/24/18 12/05/18 10-325] Levothyroxine Sodium [Synthroid] 25 mcg PO DAILY 10/24/18 12/05/18 Rosuvastatin Calcium [Crestor] 5 mg PO DAILY 10/24/18 12/05/18 lamoTRIgine [LaMICtal Xr] 50 mg PO TID 10/24/18 12/05/18 ALPRAZolam [Xanax] 0.5 mg PO BID PRN 12/05/18 12/05/18 Multivitamins, Thera [Multivitamin 1 tab PO DAILY 12/05/18 12/05/18 (formulary)] Allergies Allergy/AdvReac Type Severity Reaction Status Date / Time aspirin Allergy Dyspnea Verified 05/17/20 19:39 citalopram hydrobromide Allergy Rash/Hives Verified 05/17/20 19:39 [From Celexa] Penicillins Allergy Dyspnea Verified 05/17/20 19:39 propoxyphene napsylate Allergy Nausea & Verified 05/17/20 19:39 [From Darvocet-N] Vomiting Sulfa (Sulfonamide Allergy Dyspnea & Verified 05/17/20 19:39 Antibiotics) Severe Nausea & Vomiting Review of Systems ROS Other: All systems not noted in ROS Statement are negative. <Nestor Betancur - Last Filed: 05/17/20 21:35> ROS Other: All systems not noted in ROS Statement are negative. <Shweta Giles - Last Filed: 05/18/20 13:21> ROS Statement: Those systems with pertinent positive or pertinent negative responses have been documented in the HPI. Past Medical History Past Medical History: Fibromyalgia Additional Past Medical History / Comment(s): degenerative disk disease, scoliosis, sciatica,. Restless leg, migraine headaches History of Any Multi-Drug Resistant Organisms: MRSA Date of last positivie culture/infection: 03/2010 MDRO Source:: left shoulder/tattoo site Past Surgical History: Orthopedic Surgery Additional Past Surgical History / Comment(s): Both knees arthroscopy, rt hip ar throscopy, Lt hand extensor x2, nasal surgery Past Anesthesia/Blood Transfusion Reactions: Family History of Problems w/ Anesthesia, Postoperative Nausea & Vomiting (PONV) Additional Past Anesthesia/Blood Transfusion Reaction / Comment(s): mom didn't wake from anesthesia well Past Psychological History: ADD/ADHD, Anxiety, Bipolar Smoking Status: Current every day smoker Past Alcohol Use History: Rare Past Drug Use History: Marijuana - Past Family History Brother(s) Family Medical History: Cancer, CVA/TIA, Myocardial Infarction ([place]) Additional Family Medical History / Comment(s): Another brother had throat cancer, another brother had colon cancer Father Family Medical History: Cancer Additional Family Medical History / Comment(s): stomach cancer <Nestor Betancur - Last Filed: 05/17/20 21:35> General Exam Limitations: no limitations <Nestor Betancur - Last Filed: 05/17/20 21:35> - General Exam Comments Initial Comments: Constitutional: NAD, AOX3, Pt has pleasant affect. HEENT: NC/AT, trachea midline, neck supple, no lymphadenopathy. External ears appear normal, without discharge. Mucous membranes moist. Eyes PERRLA, EOM intact. There is no scleral icterus. No pallor noted. Cardiopulmonary: RRR, no murmurs, rubs or gallops, no JVD noted. Lungs CTAB in anterior and posterior taylor. No peripheral edema. Abdominal exam: Abdomen soft and non-distended. Abdomen mildly tender to palpation epigastric region. Bowel sounds active in LLQ. No hepatosplenomegaly. No ecchymosis Neuro: CN II-XII grossly intact. No nuchal rigidity. No raccon eyes, no aguirre sign, no hemotympanum. No cervical spinal tenderness. MSK: No posterior calf tenderness bilaterally, homans sign negative bilaterally. Posterior tibialis and radial pulse +2 bilaterally. Sensation intact in upper and lower extremities. Full active ROM in upper and lower extremities, 5/5 stregnth. (Nestor Betancur) Course Vital Signs 10/17/20 10/17/20 19:36 22:00 Temperature 98 F 97.8 F Pulse Rate 100 68 Respiratory 16 18 Rate Blood Pressure 127/87 117/83 O2 Sat by Pulse 100 100 Oximetry Medical Decision Making - Lab Data Result diagrams: 05/17/20 19:54 05/17/20 19:54 - EKG Data -: EKG Interpreted by Me (and Dr. Giles ) <Nestor Betancur - Last Filed: 05/17/20 21:35> - Lab Data Result diagrams: 05/17/20 19:54 05/17/20 19:54 <Shweta Giles - Last Filed: 05/18/20 13:21> - Medical Decision Making 54-year-old female patient to ED for epigastric burning after eating. Patient recently stopped taking an H2 RA due to a recall and switched her proton pump inhibitor. as well as exam slight mild epigastric tenderness. Resolved after GI cocktail. Laboratory investigations were unremarkable. Plain film negative for acute process. EKG nonischemic. Patient asymptomatic and stable for discharge. will be given GI referral and outpatient follow-up and return precautions. Case discussed with Dr. Giles. (Nestor Betancur) I was available for consultation in the emergency department. The history and physical exam were done by the midlevel provider. I was consulted for this patients care. I reviewed the case with the midlevel provider and based on their presentation of the patient, I agree with the assessment, medical decision making and plan of care as documented. Chart was dictated using Thirsty dictation software. Attempts were made to correct any dictation errors however some typographical errors may persist. Patient was seen during a national state of emergency due to the Covid-19 pandemic. (Shweta Giles) - Lab Data Lab Results 05/17/20 05/17/20 05/17/20 Range/Units 19:54 19:54 19:54 WBC 7.7 (3.8-10.6) k/uL RBC 4.90 (3.80-5.40) m/uL Hgb 14.4 (11.4-16.0) gm/dL Hct 45.6 (34.0-46.0) % MCV 93.0 (80.0-100.0) fL MCH 29.4 (25.0-35.0) pg MCHC 31.6 (31.0-37.0) g/dL RDW 13.2 (11.5-15.5) % Plt Count 262 (150-450) k/uL Neutrophils % 36 % Lymphocytes % 47 % Monocytes % 7 % Eosinophils % 7 % Basophils % 0 % Neutrophils # 2.8 (1.3-7.7) k/uL Lymphocytes # 3.6 (1.0-4.8) k/uL Monocytes # 0.6 (0-1.0) k/uL Eosinophils # 0.5 (0-0.7) k/uL Basophils # 0.0 (0-0.2) k/uL Sodium 140 (137-145) mmol/L Potassium 4.1 (3.5-5.1) mmol/L Chloride 112 H (98-107) mmol/L Carbon Dioxide 21 L (22-30) mmol/L Anion Gap 7 mmol/L BUN 19 H (7-17) mg/dL Creatinine 0.72 (0.52-1.04) mg/dL Est GFR (CKD-EPI)AfAm >90 (>60 ml/min/1.73 sqM) Est GFR (CKD-EPI)NonAf >90 (>60 ml/min/1.73 sqM) Glucose 118 H (74-99) mg/dL Plasma Lactic Acid Taj (0.7-2.0) mmol/L Calcium 9.2 (8.4-10.2) mg/dL Total Bilirubin 0.4 (0.2-1.3) mg/dL AST 25 (14-36) U/L ALT 18 (4-34) U/L Alkaline Phosphatase 67 (38-126) U/L Troponin I (0.000-0.034) ng/mL Total Protein 6.8 (6.3-8.2) g/dL Albumin 4.0 (3.5-5.0) g/dL Lipase 58 (23-300) U/L Urine Color Yellow Urine Appearance Clear (Clear) Urine pH 6.0 (5.0-8.0) Ur Specific Percival 1.050 H (1.001-1.035) Urine Protein Trace H (Negative) Urine Glucose (UA) Negative (Negative) Urine Ketones Negative (Negative) Urine Blood Negative (Negative) Urine Nitrite Negative (Negative) Urine Bilirubin Negative (Negative) Urine Urobilinogen 2.0 (<2.0) mg/dL Ur Leukocyte Esterase Negative (Negative) 05/17/20 05/17/20 Range/Units 19:54 19:54 WBC (3.8-10.6) k/uL RBC (3.80-5.40) m/uL Hgb (11.4-16.0) gm/dL Hct (34.0-46.0) % MCV (80.0-100.0) fL MCH (25.0-35.0) pg MCHC (31.0-37.0) g/dL RDW (11.5-15.5) % Plt Count (150-450) k/uL Neutrophils % % Lymphocytes % % Monocytes % % Eosinophils % % Basophils % % Neutrophils # (1.3-7.7) k/uL Lymphocytes # (1.0-4.8) k/uL Monocytes # (0-1.0) k/uL Eosinophils # (0-0.7) k/uL Basophils # (0-0.2) k/uL Sodium (137-145) mmol/L Potassium (3.5-5.1) mmol/L Chloride (98-107) mmol/L Carbon Dioxide (22-30) mmol/L Anion Gap mmol/L BUN (7-17) mg/dL Creatinine (0.52-1.04) mg/dL Est GFR (CKD-EPI)AfAm (>60 ml/min/1.73 sqM) Est GFR (CKD-EPI)NonAf (>60 ml/min/1.73 sqM) Glucose (74-99) mg/dL Plasma Lactic Acid Taj 1.9 (0.7-2.0) mmol/L Calcium (8.4-10.2) mg/dL Total Bilirubin (0.2-1.3) mg/dL AST (14-36) U/L ALT (4-34) U/L Alkaline Phosphatase (38-126) U/L Troponin I <0.012 (0.000-0.034) ng/mL Total Protein (6.3-8.2) g/dL Albumin (3.5-5.0) g/dL Lipase (23-300) U/L Urine Color Urine Appearance (Clear) Urine pH (5.0-8.0) Ur Specific Percival (1.001-1.035) Urine Protein (Negative) Urine Glucose (UA) (Negative) Urine Ketones (Negative) Urine Blood (Negative) Urine Nitrite (Negative) Urine Bilirubin (Negative) Urine Urobilinogen (<2.0) mg/dL Ur Leukocyte Esterase (Negative) - EKG Data EKG Comments: Ventricular rate 102, LA interval 144, QRS 78, QT/QTC 318/414. Sinus tachycardia. No concern for acute ischemia at this time. (Nestor Betancur) Disposition Is patient prescribed a controlled substance at d/c from ED?: No <Nestor Betancur - Last Filed: 05/17/20 21:35> <Shweta Giles - Last Filed: 05/18/20 13:21> Clinical Impression: Abdominal pain, Epigastric burning sensation Disposition: HOME SELF-CARE Condition: Stable Instructions (If sedation given, give patient instructions): Abdominal Pain (ED) Additional Instructions: follow-up with primary care provider tomorrow. Follow-up with GI consult tomorrow. I do recommend using Tums symptomatically for your discomfort, continue taking the proton pump inhibitor. Return to ER if any worsening symptoms. Referrals: Gus Neves MD [Primary Care Provider] - 1-2 days Sarah Castillo MD [STAFF PHYSICIAN] - 1-2 days
[2020-05-17 20:59] LABS: Appearance,Urine Clear (Clear); Bilirubin,Urine Negative (Negative); Blood,Urine Negative (Negative); Color,Urine Yellow; Glucose,Urine (UA) Negative (Negative); Ketones,Urine Negative (Negative); Leukocyte Esterase,Urine Negative (Negative); Nitrite,Urine Negative (Negative); Protein,Urine Trace (Negative)
[2020-05-17 21:07] LABS: ALT 18 U/L (4-34); AST 25 U/L (14-36); African American GFR (CKD) >90 (>60 ml/min/1.73 sqM); Alkaline Phosphatase 67 U/L (38-126); Anion Gap 7 mmol/L; Blood Urea Nitrogen 19 mg/dL (7-17); Calcium 9.2 mg/dL (8.4-10.2); Carbon Dioxide 21 mmol/L (22-30); Chloride 112 mmol/L (98-107); Glucose 118 mg/dL (74-99); Non-African American GFR(CKD) >90 (>60 ml/min/1.73 sqM); Potassium 4.1 mmol/L (3.5-5.1); Sodium 140 mmol/L (137-145); Total Bilirubin 0.4 mg/dL (0.2-1.3); Total Protein 6.8 g/dL (6.3-8.2)
[2020-05-17 21:22] LABS: Basophils % (A) 0 %; Eosinophils # (A) 0.5 k/uL (0-0.7); Eosinophils % (A) 7 %; HCT 45.6 % (34.0-46.0); HGB 14.4 gm/dL (11.4-16.0); Lymphocytes # (A) 3.6 k/uL (1.0-4.8); Lymphocytes % (A) 47 %; MCH 29.4 pg (25.0-35.0); MCHC 31.6 g/dL (31.0-37.0); Mean Platelet Volume 8.5; Monocytes # (A) 0.6 k/uL (0-1.0); Monocytes % (A) 7 %; Neutrophils # (A) 2.8 k/uL (1.3-7.7); Neutrophils % (A) 36 %; Platelet Count 262 k/uL (150-450); RDW 13.2 % (11.5-15.5); WBC 7.7 k/uL (3.8-10.6)
[2020-05-17 22:07] VITALS: BP 117/83; PULSE 68; RESP 18; TEMP 97.8
== END 2020-05-17 22:09 | disposition home or self-care (01) ==
LOC: EC 19:32
DX: R10.13 Epigastric pain (principal); F41.9 Anxiety disorder, unspecified; F31.9 Bipolar disorder, unspecified; F90.9 Attention-deficit hyperactivity disorder, unspecified type; F17.200 Nicotine dependence, unspecified, uncomplicated; G25.81 Restless legs syndrome; M79.7 Fibromyalgia; Z79.51 Long term (current) use of inhaled steroids; Z79.899 Other long term (current) drug therapy; Z88.0 Allergy status to penicillin; Z88.2 Allergy status to sulfonamides; Z88.6 Allergy status to analgesic agent; Z88.8 Allergy status to other drugs, medicaments and biological substances; Z86.69 Personal history of other diseases of the nervous system and sense organs; Z86.14 Personal history of Methicillin resistant Staphylococcus aureus infection
CPT/HCPCS: 36415; 74018; 80053; 81003; 83605; 83690; 84484; 85025; 93005; 96360; 99284

== ENCOUNTER → 2021-05-26 | Outpatient (CLI) | payer OTHER ==
--- NOTE | 2021-05-27 10:34 | MM ---
Reason for exam: screening (asymptomatic). Last mammogram was performed 1 year and 2 months ago. History: Patient is postmenopausal. Family history of breast cancer in sister at age 45. Took hormonal contraceptives for 1 year 6 months. Physical Findings: A clinical breast exam by your physician is recommended on an annual basis and results should be correlated with mammographic findings. MG Screening Mammo w CAD Bilateral CC and MLO view(s) were taken. Prior study comparison: March 20, 2020, bilateral MG screening mammo w CAD. November 13, 2018, bilateral MG screening mammo w CAD. There are scattered fibroglandular densities. There is no discrete abnormality. No significant changes when compared with prior studies. ASSESSMENT: Negative, BI-RAD 1 RECOMMENDATION: Routine screening mammogram of both breasts in 1 year.
== END | disposition home or self-care (01) ==
LOC: RADMAMWWP 10:35
PROVIDERS: ATTEND Internal Medicine
DX: Z12.31 Encounter for screening mammogram for malignant neoplasm of breast (principal); Z80.3 Family history of malignant neoplasm of breast; Z78.0 Asymptomatic menopausal state
CPT/HCPCS: 77067

== ENCOUNTER → 2021-05-26 | Outpatient (CLI) | payer OTHER ==
--- NOTE | 2021-05-26 11:11 | US ---
EXAMINATION TYPE: US abdomen limited DATE OF EXAM: 05/26/2021 COMPARISON: NONE CLINICAL HISTORY: R10.84 Generalized Abd pain. Epigastric pain after eating x 1 month EXAM MEASUREMENTS: Liver Length: 16.2 cm Gallbladder Wall: 0.1 cm CBD: 0.5 cm Right Kidney: 9.5 x 4.7 x 5.3 cm Pancreas: visualized portions appears hyperechoic Liver: heterogenous Gallbladder: wnl Evidence for sonographic Cormier's sign: no CBD: Within normal limits for patient's age Right Kidney: wnl IMPRESSION: No shadowing mobile gallstones or ultrasound evidence for acute cholecystitis.
== END | disposition home or self-care (01) ==
LOC: RADUSWWP 09:51
PROVIDERS: ATTEND Internal Medicine
DX: R10.84 Generalized abdominal pain (principal)
CPT/HCPCS: 76705

== ENCOUNTER 2022-07-17 10:16 | Emergency (ER) | payer OTHER ==
[2022-07-17] MEDS ORDERED: ALBUTEROL HFA INHALER INHALATION STA (10:56)
--- NOTE | 2022-07-17 11:33 | XR ---
EXAMINATION TYPE: XR chest 2V DATE OF EXAM: 07/17/2022 11:10 AM COMPARISON: Chest radiographs from 07/26/2016. TECHNIQUE: XR chest 2V Frontal and lateral views of the chest. CLINICAL INDICATION:Female, 57 years old with history of Difficulty breathing ; FINDINGS: Lungs/Pleura: There is no evidence of pleural effusion, focal consolidation, or pneumothorax. Pulmonary vascularity: Unremarkable. Heart/mediastinum: Cardiomediastinal silhouette is unremarkable. Musculoskeletal: No acute osseous pathology. Other findings: Dense lesions in the right supraclavicular region are unchanged from 07/26/2016 likel y calcified lesions. IMPRESSION: No acute cardiopulmonary disease/process.
--- NOTE | 2022-07-17 11:58 | ED ---
General Adult HPI - General Chief complaint: Shortness of Breath Stated complaint: ROSI Time Seen by Provider: 07/17/22 10:40 Source: patient, RN notes reviewed, old records reviewed Mode of arrival: ambulatory - History of Present Illness Initial comments: This a 57-year-old female presents emergency department stating that she started having a sore throat and cough yesterday. Patient states she feels a little short of breath which is coughing but she's not short of breath while she is at rest. Patient denies any chest pain or palpitations. Patient denies any fever or chills. Patient denies any abdominal pain patient denies nausea vomiting. Patient did not get the flu shot. Patient denies headache patient states she does have some body aches. - Related Data Home Medications Medication Instructions Recorded Confirmed Ibuprofen [Motrin] 800 mg PO Q8HR PRN 10/01/14 12/05/18 rOPINIRole HCL [Requip] 1 mg PO HS 10/01/14 12/05/18 Albuterol Inhaler [Ventolin 1 puff INHALATION RT-Q4H PRN 01/07/15 12/05/18 Inhaler] Budesonide-Formot 160-4.5 Mcg 2 puff INHALATION RT-BID 01/07/15 12/05/18 [Symbicort 160-4.5 Mcg Inhaler] Loratadine [Claritin] 10 mg PO DAILY 01/07/15 12/05/18 Montelukast [Singulair] 10 mg PO DAILY 01/07/15 12/05/18 raNITIdine HCL [Zantac] 150 mg PO BID 01/07/15 12/05/18 Butalb/APAP/Caff 50-325-40Mg 1 tab PO Q12H PRN 07/26/16 12/05/18 [Fioricet 50-325-40] Cyclobenzaprine [Flexeril] 10 mg PO BID PRN 07/26/16 12/05/18 Ergocalciferol (Vitamin D2) 50,000 unit PO WE 10/24/18 12/05/18 [Vitamin D2] HYDROcodone/APAP 10-325MG [[place] 1 tab PO TID PRN 10/24/18 12/05/18 10-325] Levothyroxine Sodium [Synthroid] 25 mcg PO DAILY 10/24/18 12/05/18 Rosuvastatin Calcium [Crestor] 5 mg PO DAILY 10/24/18 12/05/18 lamoTRIgine [LaMICtal Xr] 50 mg PO TID 10/24/18 12/05/18 ALPRAZolam [Xanax] 0.5 mg PO BID PRN 12/05/18 12/05/18 Multivitamins, Thera [Multivitamin 1 tab PO DAILY 12/05/18 12/05/18 (formulary)] Previous Rx's Medication Instructions Recorded Albuterol Inhaler [Ventolin Hfa 1 - 2 puff INHALATION Q6HR PRN #2 07/17/22 Inhaler] each Allergies Allergy/AdvReac Type Severity Reaction Status Date / Time aspirin Allergy Dyspnea Verified 07/17/22 10:41 citalopram hydrobromide Allergy Rash/Hives Verified 07/17/22 10:41 [From Celexa] Penicillins Allergy Dyspnea Verified 07/17/22 10:41 propoxyphene napsylate Allergy Nausea & Verified 07/17/22 10:41 [From Darvocet-N] Vomiting Sulfa (Sulfonamide Allergy Dyspnea & Verified 07/17/22 10:41 Antibiotics) Severe Nausea & Vomiting Review of Systems ROS Statement: Those systems with pertinent positive or pertinent negative responses have been documented in the HPI. ROS Other: All systems not noted in ROS Statement are negative. Past Medical History Past Medical History: Fibromyalgia Additional Past Medical History / Comment(s): degenerative disk disease, scoliosis, sciatica,. Restless leg, migraine headaches History of Any Multi-Drug Resistant Organisms: MRSA Date of last positivie culture/infection: 03/2010 MDRO Source:: left shoulder/tattoo site Past Surgical History: Orthopedic Surgery Additional Past Surgical History / Comment(s): Both knees arthroscopy, rt hip arthroscopy, Lt hand extensor x2, nasal surgery Past Anesthesia/Blood Transfusion Reactions: Family History of Problems w/ Anesthesia, Postoperative Nausea & Vomiting (PONV) Additional Past Anesthesia/Blood Transfusion Reaction / Comment(s): mom didn't wake from anesthesia well Past Psychological History: ADD/ADHD, Anxiety, Bipolar Smoking Status: Current every day smoker Past Alcohol Use History: Rare Past Drug Use History: Marijuana - Past Family History Brother(s) Family Medical History: Cancer, CVA/TIA, Myocardial Infarction ([place]) Additional Family Medical History / Comment(s): Another brother had throat cancer, another brother had colon cancer Father Family Medical History: Cancer Additional Family Medical History / Comment(s): stomach cancer General Exam - General Exam Comments Initial Comments: GENERAL: Patient is well-developed and well-nourished. Patient is nontoxic and well- hydrated and is in mild distress. ENT: Neck is soft and supple. No significant lymphadenopathy is noted. Oropharynx i s clear. Moist mucous membranes. Neck has full range of motion without eliciting any pain. EYES: The sclera were anicteric and conjunctiva were pink and moist. Extraocular movements were intact and pupils were equal round and reactive to light. Eyelids were unremarkable. PULMONARY: Unlabored respirations. Good breath sounds bilaterally. No audible rales rhonchi or wheezing was noted. CARDIOVASCULAR: There is a regular rate and rhythm without any murmurs gallops or rubs. ABDOMEN: Soft and nontender with normal bowel sounds. SKIN: Skin is clear with no lesions or rashes and otherwise unremarkable. NEUROLOGIC: Patient is alert and oriented x3. Cranial nerves II through XII are grossly intact. Motor and sensory are also intact. Normal speech, volume and content. Symmetrical smile. MUSCULOSKELETAL: Normal extremities with adequate strength and full range of motion. No lower extremity swelling or edema. No calf tenderness. LYMPHATICS: No significant lymphadenopathy is noted PSYCHIATRIC: Normal psychiatric evaluation. Course Vital Signs 07/17/22 10:37 Temperature 99.4 F Pulse Rate 77 Respiratory 20 Rate Blood Pressure 148/70 O2 Sat by Pulse 99 Oximetry Medical Decision Making - Medical Decision Making Chest x-ray is interpreted by me. X-ray shows no acute abnormality. Patient is influenza A+. - Lab Data Lab Results 07/17/22 07/17/22 Range/Units 10:58 10:58 Influenza Type A (PCR) Detected A (Not Detectd) Influenza Type B (PCR) Not Detected (Not Detectd) RSV (PCR) Not Detected (Not Detectd) SARS-CoV-2 (PCR) Not Detected (Not Detectd) Group A Strep (PCR) NOT DETECTED (Not Detectd) Disposition Clinical Impression: Influenza A Disposition: HOME SELF-CARE Instructions (If sedation given, give patient instructions): Influenza (ED) Additional Instructions: Patient should take Motrin and Tylenol when necessary for fever and aches and pains Prescriptions: Albuterol Inhaler [Ventolin Hfa Inhaler] 1 - 2 puff INHALATION Q6HR PRN #2 each PRN Reason: Difficulty breathing Is patient prescribed a controlled substance at d/c from ED?: No Referrals: Gus Neves MD [Primary Care Provider] - 1-2 days Time of Disposition: 11:58
[2022-07-17 12:05] VITALS: BP 139/89; PULSE 116; RESP 18; TEMP 99.1
== END 2022-07-17 12:05 | disposition home or self-care (01) ==
LOC: EC 10:16
DX: J10.1 Influenza due to other identified influenza virus with other respiratory manifestations (principal); F31.9 Bipolar disorder, unspecified; F41.9 Anxiety disorder, unspecified; F17.200 Nicotine dependence, unspecified, uncomplicated; Z88.0 Allergy status to penicillin; Z88.2 Allergy status to sulfonamides; Z88.6 Allergy status to analgesic agent; Z88.8 Allergy status to other drugs, medicaments and biological substances; Z20.822 Contact with and (suspected) exposure to COVID-19
CPT/HCPCS: 71046; 87636; 87651; 94640; 99284

== ENCOUNTER → 2022-07-30 | Outpatient (CLI) | payer OTHER ==
--- NOTE | 2022-08-02 09:19 | MM ---
Reason for Exam: Screening (asymptomatic). Last mammogram was performed 1 year(s) and 2 month(s) ago. Patient History: Menarche at age 11. First Full-Term at age 26. Postmenopausal. Patient has history of breast feeding. Hormonal Contraceptives for 1 year, 6 months. Niece had breast cancer under age 50. Sister had breast cancer, age 45. Risk Values: Mercy 5 year model risk: 2.7%. NCI Lifetime model risk: 16.6%. Prior Study Comparison: 08/09/2016 Bilateral Screening Mammogram, [facility]. 08/12/2016 Left Diagnostic Mammogram, [facility]. 05/04/2017 Left Diagnostic Mammogram, [facility]. 08/24/2017 Bilateral Diagnostic Mammogram, [facility]. 11/13/2018 Bilateral Screening Mammogram, [facility]. 03/20/2020 Bilateral Screening Mammogram, [facility]. 05/26/2021 Bilateral Screening Mammogram, [facility]. Tissue Density: There are scattered fibroglandular densities. Findings: Analyzed By CAD. A few benign-appearing round calcifications in the left breast are present. There is no suspicious group of microcalcifications or new suspicious mass in either breast. Overall Assessment: Benign, BI-RAD 2 Management: Screening Mammogram of both breasts in 1 year. A clinical breast exam by your physician is recommended on an annual basis and results should be correlated with mammographic findings. Electronically signed and approved by: Archie Lewis M.D.
== END | disposition home or self-care (01) ==
LOC: RADMAMWWP 07:30
PROVIDERS: ATTEND Internal Medicine
DX: Z12.31 Encounter for screening mammogram for malignant neoplasm of breast (principal); Z78.0 Asymptomatic menopausal state; Z80.3 Family history of malignant neoplasm of breast
CPT/HCPCS: 77067

== ENCOUNTER → 2022-12-02 | Outpatient (CLI) | payer OTHER ==
--- NOTE | 2022-12-02 08:59 | CT ---
EXAMINATION TYPE: CT sinus wo con DATE OF EXAM: 12/02/2022 COMPARISON: 03/06/2020 HISTORY: Chronic sinusitis CT DLP: 612.00 mGycm. Automated Exposure Control for Dose Reduction was Utilized. TECHNIQUE: CT scan of the sinuses is performed without contrast, axial images are obtained, coronal r eformatted images are also reviewed. FINDINGS: The paranasal sinuses including the frontal, ethmoid, sphenoid, and maxillary sinuses bila terally demonstrate moderate to severe ethmoid. Chronic sinusitis. Maxillary sinuses are markedly imp roved relative to prior exam. The nodular area of mucosal thickening, mucous retention cyst or polyp within the sphenoid sinus. Frontal sinus clear. Nasal septal deviation noted. There is a moderate to large size nahomi bullosa on the right. The ostiomeatal complex is patent bilaterally on the coronal images. Visualized portion of mastoid air cells show no abnormal opacification. The globes are intact bilate rally. Incidental note made of a cavum septum vergae normal variant intracranially. IMPRESSION: 1. Moderate to severe chronic appearing ethmoidal sinusitis with mild changes involving the sphenoid sinus. Overall findings are improved from prior exam.
== END | disposition home or self-care (01) ==
LOC: RADCTMAIN 08:15
PROVIDERS: ATTEND Internal Medicine
DX: J01.80 Other acute sinusitis (principal)
CPT/HCPCS: 70486

== ENCOUNTER → 2022-12-17 | Outpatient (CLI) | payer OTHER ==
--- NOTE | 2022-12-17 16:57 | XR ---
EXAMINATION TYPE: XR foot complete RT DATE OF EXAM: 12/17/2022 COMPARISON: NONE HISTORY: 57-year-old female R5 2, pain TECHNIQUE: 3 views FINDINGS: There is a comminuted fracture of the shaft and tuft of the first distal phalanx. Vertical extension of fracture along the lateral aspect of the phalangeal base. Possible intra-articular exten adriana but no articular surface incongruence. Mild degenerative spurring at the first MTP joint. No add itional fracture or dislocation seen. Tiny os peroneum. IMPRESSION: Comminuted, nondisplaced fracture involving the shaft and tuft of the first distal phalanx. Vertical fracture extension into the lateral margin of the phalangeal base. Possible intra-articular extension but no articular surface incongruence.
== END | disposition home or self-care (01) ==
LOC: RADXRMAIN 13:57
PROVIDERS: ATTEND Internal Medicine
DX: M79.671 Pain in right foot (principal)

== ENCOUNTER → 2023-09-12 | Outpatient (CLI) | payer OTHER ==
--- NOTE | 2023-09-13 09:19 | MM ---
Reason for Exam: Screening (asymptomatic). Last mammogram was performed 1 year(s) and 2 month(s) ago. Patient History: Menarche at age 11. First Full-Term at age 26. Postmenopausal. Patient has history of breast feeding. Hormonal Contraceptives for 1 year, 6 months. Niece had breast cancer under age 50. Sister had breast cancer, age 45. Risk Values: Mercy 5 year model risk: 2.8%. NCI Lifetime model risk: 16.2%. Prior Study Comparison: 03/20/2020 Bilateral Screening Mammogram, [facility]. 05/26/2021 Bilateral Screening Mammogram, [facility]. 07/30/2022 Bilateral MG screening mammo w CAD, [facility]. Tissue Density: The breast tissue is almost entirely fat. Findings: Analyzed By CAD. There is no suspicious group of microcalcifications or new suspicious mass. Overall Assessment: Negative, BI-RAD 1 Management: Screening Mammogram of both breasts in [address] [facility] will attempt to contact patient to return for supplemental views and ultrasound if indicated. Patient should continue monthly self-breast exams. A clinical breast exam by your physician is recommended on an annual basis. This exam should not preclude additional follow-up of suspicious palpable abnormalities. Note on Mercy scores and lifetime risk: 1. A Mercy score greater than 3% is considered moderate risk. If this is the case, consider specialist referral to assess eligibility for a risk reducing agent. 2. If overall lifetime risk for the development of breast cancer is 20% or higher, the patient may qualify for future screening with alternating mammogram and breast MRI. Electronically signed and approved by: Sergio Aguilar DO
== END | disposition home or self-care (01) ==
LOC: RADMAMWWP 11:55
PROVIDERS: ATTEND Internal Medicine
DX: Z12.31 Encounter for screening mammogram for malignant neoplasm of breast (principal); Z78.0 Asymptomatic menopausal state; Z80.3 Family history of malignant neoplasm of breast
CPT/HCPCS: 77067

== ENCOUNTER 2024-01-28 00:29 | Emergency (ER) | payer OTHER ==
[2024-01-28] MEDS: FAMOTIDINE 20 MG TAB PO STA (00:57)
[2024-01-28] MEDS: methylPREDNISolone SOD SUCCI 125 MG/2 ML VIAL IM ONE (00:57)
[2024-01-28 01:55] VITALS: BP 137/96; PULSE 67; RESP 12; TEMP 97.8
--- NOTE | 2024-01-28 01:56 | ED ---
Skin/Abscess/FB HPI - General Chief complaint: Skin/Abscess/Foreign Body Stated complaint: Bee sting, Face swelling Time Seen by Provider: 01/28/24 00:36 Source: patient Mode of arrival: ambulatory Limitations: no limitations - History of Present Illness Initial comments: 58-year-old female presenting with chief complaint of swelling to the right side of her face. She states that yesterday she encountered multiple yellow jackets and suffered multiple stings to the face on the right side. She states that today after she woke up from a nap she noticed increased swelling to the right side of her face. She does admit to some tenderness and itching. Having no difficulty breathing or swallowing. No swelling of the lips or tongue. States that she is nonallergic to bee stings. No fever. She took Benadryl prior to arrival - Related Data Home Medications Medication Instructions Recorded Confirmed Ibuprofen [Motrin] 800 mg PO Q8HR PRN 10/01/14 12/05/18 rOPINIRole HCL [Requip] 1 mg PO HS 10/01/14 12/05/18 Albuterol Inhaler [Ventolin 1 puff INHALATION RT-Q4H PRN 01/07/15 12/05/18 Inhaler] Budesonide-Formot 160-4.5 Mcg 2 puff INHALATION RT-BID 01/07/15 12/05/18 [Symbicort 160-4.5 Mcg Inhaler] Loratadine [Claritin] 10 mg PO DAILY 01/07/15 12/05/18 Montelukast [Singulair] 10 mg PO DAILY 01/07/15 12/05/18 raNITIdine HCL [Zantac] 150 mg PO BID 01/07/15 12/05/18 Butalb/APAP/Caff 50-325-40Mg 1 tab PO Q12H PRN 07/26/16 12/05/18 [Fioricet 50-325-40] Cyclobenzaprine [Flexeril] 10 mg PO BID PRN 07/26/16 12/05/18 Ergocalciferol (Vitamin D2) 50,000 unit PO WE 10/24/18 12/05/18 [Vitamin D2] HYDROcodone/APAP 10-325MG [[place] 1 tab PO TID PRN 10/24/18 12/05/18 10-325] Levothyroxine Sodium [Synthroid] 25 mcg PO DAILY 10/24/18 12/05/18 Rosuvastatin Calcium [Crestor] 5 mg PO DAILY 10/24/18 12/05/18 lamoTRIgine [LaMICtal Xr] 50 mg PO TID 10/24/18 12/05/18 ALPRAZolam [Xanax] 0.5 mg PO BID PRN 12/05/18 12/05/18 Multivitamins, Thera [Multivitamin 1 tab PO DAILY 12/05/18 12/05/18 (formulary)] Previous Rx's Medication Instructions Recorded Albuterol Inhaler [Ventolin Hfa 1 - 2 puff INHALATION Q6HR PRN #2 07/17/22 Inhaler] each Allergies Allergy/AdvReac Type Severity Reaction Status Date / Time aspirin Allergy Dyspnea Verified 01/28/24 00:35 citalopram hydrobromide Allergy Rash/Hives Verified 01/28/24 00:35 [From Celexa] Penicillins Allergy Dyspnea Verified 01/28/24 00:35 propoxyphene napsylate Allergy Nausea & Verified 01/28/24 00:35 [From Darvocet-N] Vomiting Sulfa (Sulfonamide Allergy Dyspnea & Verified 01/28/24 00:35 Antibiotics) Severe Nausea & Vomiting Review of Systems ROS Statement: Those systems with pertinent positive or pertinent negative responses have been documented in the HPI. ROS Other: All systems not noted in ROS Statement are negative. Past Medical History Past Medical History: Fibromyalgia Additional Past Medical History / Comment(s): degenerative disk disease, scoliosis, sciatica,. Restless leg, migraine headaches History of Any Multi-Drug Resistant Organisms: MRSA Date of last positivie culture/infection: 03/2010 MDRO Source:: left shoulder/tattoo site Past Surgical History: Orthopedic Surgery Additional Past Surgical History / Comment(s): Both knees arthroscopy, rt hip arthroscopy, Lt hand extensor x2, nasal surgery Past Anesthesia/Blood Transfusion Reactions: Family History of Problems w/ Anesthesia, Postoperative Nausea & Vomiting (PONV) Additional Past Anesthesia/Blood Transfusion Reaction / Comment(s): mom didn't wake from anesthesia well Past Psychological History: ADD/ADHD, Anxiety, Bipolar Smoking Status: Current every day smoker Past Alcohol Use History: Rare Past Drug Use History: Marijuana - Past Family History Brother(s) Family Medical History: Cancer, CVA/TIA, Myocardial Infarction ([place]) Additional Family Medical History / Comment(s): Another brother had throat cancer, another brother had colon cancer Father Family Medical History: Cancer Additional Family Medical History / Comment(s): stomach cancer General Exam Limitations: no limitations General appearance: alert, in no apparent distress Head exam: Present: atraumatic, normocephalic Eye exam: Present: normal appearance, EOMI ENT exam: Present: normal oropharynx, mucous membranes moist Neck exam: Present: normal inspection. Absent: meningismus Respiratory exam: Present: normal lung sounds bilaterally. Absent: respiratory distress, wheezes, rales, rhonchi, stridor Cardiovascular Exam: Present: regular rate, normal rhythm, normal heart sounds. Absent: systolic murmur, diastolic murmur, rubs, gallop, clicks Neurological exam: Present: alert, oriented X3 Psychiatric exam: Present: normal affect, normal mood Skin exam: Present: warm, dry, erythema (Patient does have some mild redness and swelling to the right side of the face) Course Vital Signs 01/28/24 01/28/24 00:32 01:53 Temperature 97.9 F 97.8 F Pulse Rate 95 67 Respiratory 16 12 Rate Blood Pressure 151/93 137/96 O2 Sat by Pulse 97 97 Oximetry Medical Decision Making - Medical Decision Making Was pt. sent in by a medical professional or institution ([facility], [facility], urgent care, hospital, or intermediate...) When possible be specific @ -No Did you speak to anyone other than the patient for history (EMS, parent, family, police, friend...)? What history was obtained from this source @ -No Did you review nursing and triage notes (agree or disagree)? Why? @ -I reviewed and agree with nursing and triage notes Were old charts reviewed (outside hosp., previous admission, EMS record, old EKG, old radiological studies, urgent care reports/EKG's, intermediate records)? Report findings @ -No old charts were reviewed Differential Diagnosis (chest pain, altered mental status, abdominal pain women, abdominal pain men, vaginal bleeding, weakness, fever, dyspnea, syncope, headache, dizziness, GI bleed, back pain, seizure, CVA, palpatations, mental health, musculoskeletal)? @ -Differential includes anticipated reaction to bee sting, allergic reaction, periorbital cellulitis, this is not an all-inclusive list EKG interpreted by me (3pts min.). @ -As above X-rays interpreted by me (1pt min.). @ -None done CT interpreted by me (1pt min.). @ -None done U/S interpreted by me (1pt. min.). @ -None done What testing was considered but not performed or refused? (CT, X-rays, U/S, labs)? Why? @ -None What meds were considered but not given or refused? Why? @ -None Did you discuss the management of the patient with other professionals (professionals i.e. Dr., PA, [facility], lab, RT, psych nurse, social media project manager, petroleum products district supervisor, teacher, credit administration officer, bottle caser)? Give summary @ -No Was smoking cessation discussed for >3mins.? @ -No Was critical care preformed (if so, how long)? @ -No Were there social determinants of health that impacted care today? How? (Homelessness, low income, unemployed, alcoholism, drug addiction, transportation, low edu. Level, literacy, decrease access to med. care, alf, rehab)? @ -No Was there de-escalation of care discussed even if they declined (Discuss DNR or withdrawal of care, Hospice)? DNR status @ -No What co-morbidities impacted this encounter? (DM, HTN, Smoking, COPD, CAD, Cancer, CVA, ARF, Chemo, Hep., AIDS, mental health diagnosis, sleep apnea, morbid obesity)? @ -None Was patient admitted / discharged? Hospital course, mention meds given and route, prescriptions, significant lab abnormalities, going to OR and other pertinent info. @ -58-year-old female presenting with chief complaint of swelling to the right side of her face. She states that yesterday she did perform multiple yellowjacket stings to the right side of the face. She states that the swelling did not start until this evening. She is having no difficulty breathing or swallowing. There are no signs of angioedema. There is very mild swelling in slight redness to the right side of the face. Patient took Benadryl prior to arrival. Here she received Solu-Medrol and Pepcid. On reassessment there is improvement to the swelling. Patient feels better and would like to be discharged home. Take Benadryl as needed. Follow-up with PCP. Report back to ER with any new or worsening symptoms. Discussed return parameters and answered all questions. Patient conveyed verbal understanding and agreed to the plan. I discussed this case in detail with my attending Dr. Mensah Undiagnosed new problem with uncertain prognosis? @ -No Drug Therapy requiring intensive monitoring for toxicity (Heparin, Nitro, Insulin, Cardizem)? @ -No Were any procedures done? @ -No Diagnosis/symptom? @ -Bee sting Acute, or Chronic, or Acute on Chronic? @ -Acute Uncomplicated (without systemic symptoms) or Complicated (systemic symptoms)? @ -Uncomplicated Side effects of treatment? @ -No Exacerbation, Progression, or Severe Exacerbation? @ -No Poses a threat to life or bodily function? How? (Chest pain, [place], [place], pneumonia, PE, COPD, DKA, ARF, appy, cholecystitis, CVA, Diverticulitis, Homicidal, Suicidal, threat to staff... and all critical care pts) @ -Low likelihood Disposition Clinical Impression: Bee sting Disposition: HOME SELF-CARE Condition: Good Instructions (If sedation given, give patient instructions): Insect Bite or Sting (ED) Additional Instructions: Follow-up with PCP. Take Benadryl as needed. Is patient prescribed a controlled substance at d/c from ED?: No Referrals: Gus Neves MD [Primary Care Provider] - 1-2 days Time of Disposition: 01:55
== END 2024-01-28 02:03 | disposition home or self-care (01) ==
LOC: EC 00:29
DX: S00.86XA Insect bite (nonvenomous) of other part of head, initial encounter (principal); F17.200 Nicotine dependence, unspecified, uncomplicated; Z88.0 Allergy status to penicillin; Z88.2 Allergy status to sulfonamides; Z88.5 Allergy status to narcotic agent; Z88.6 Allergy status to analgesic agent; Z88.8 Allergy status to other drugs, medicaments and biological substances; W57.XXXA Bitten or stung by nonvenomous insect and other nonvenomous arthropods, initial encounter
CPT/HCPCS: 99283; 96372; J2919